=== PATIENT | female | born 1945 | race Caucasian/White ===

== ENCOUNTER 2016-07-29 12:06 | Emergency (ER) | payer OTHER, MEDICARE ==
[~2016-07-29] VITALS: Ht 152.4 cm; Wt 81.6 kg
[~2016-07-29 12:06] MED LIST: AMLO5TAB PO; ASPI325T49 PO; ATEN100T6 PO; CLOP75TA PO; ENAL20TA46 PO; HYDR-4446 PO; ISOS5TAB7 PO; LIP80 PO; LORA-476 PO; METO-460 PO; OMEP40EC1 PO; PHEN100C4 PO
--- NOTE | 2016-07-29 12:11 | NUR ---
Patient transferred to bed 7 via wheelchair by POLLY nicole evaluating patient at bedside.
[2016-07-29 12:12] VITALS: BP 139/75
[2016-07-29] MEDS ORDERED: NACL 0.9% 1,000 ML IV SCH (12:12)
--- NOTE | 2016-07-29 12:12 | NUR ---
Dr. Castano evaluating patient at bedside.
[2016-07-29] MEDS ORDERED: ASPIRIN 81 MG TAB.CHEW PO ONE (12:15)
[2016-07-29] MEDS ORDERED: ONDANSETRON 4 MG/2 ML VIAL IVP ONE (12:15)
--- NOTE | 2016-07-29 12:23 | NUR ---
retail merchandiser technician at bedside.
--- NOTE | 2016-07-29 12:25 | NUR ---
X-Ray at bedside.
--- NOTE | 2016-07-29 12:35 | NUR ---
PATIENT PRESENTS TO ED WITH left sided chest pain radiating to lue with sob x 1 day . PT STATES . DENIES N/V/D; SKIN IS PINK/WARM/DRY; AAOX4 WITH EVEN AND STEADY GAIT; LUNGS CLEAR BL; HR EVEN AND REGULAR; PT DENIES ANY FEVER, COUGH AT THIS TIME; PATIENT STATES PAIN OF 6/10 AT THIS TIME; VSS; PATIENT POSITIONED FOR COMFORT; HOB ELEVATED; BEDRAILS UP X2; BED DOWN. ER MD MADE AWARE OF PT STATUS.
[2016-07-29 12:49] LABS: BASOPHILS # (AUTO) 0.2 K/uL (0.00-0.22); EOSINOPHILS # (AUTO) 0.3 K/uL (0-0.4); EOSINOPHILS % (AUTO) 4.3 % (0.0-4.0); HEMATOCRIT 39.9 % (36-48); HEMOGLOBIN 13.2 g/dL (12.0-16.0); LYMPHOCYTES # (AUTO) 1.9 K/uL (2.5-16.5); MEAN CORPUSCULAR HEMOGLOBIN 31 pg (27-31); MEAN CORPUSCULAR HGB CONC 33 g/dL (33-37); MEAN CORPUSCULAR VOLUME 94 fL (80-94); MONOCYTES # (AUTO) 0.7 K/uL (0.8-1.0); MONOCYTES % (AUTO) 9.5 % (1.7-9.3); NEUTROPHILS # (AUTO) 4.5 K/uL (1.8-7.7); NEUTROPHILS % (AUTO) 59.2 % (42.2-75.2); PLATELET COUNT (AUTO) 251 K/uL (140-450); RED BLOOD CELL COUNT(AUTO) 4.26 MIL/uL (4.20-5.40); RED CELL DISTRIBUTION WIDTH 11.6 % (11.6-13.7); WHITE BLOOD COUNT (AUTO) 7.6 K/uL (4.8-10.8)
[2016-07-29 13:00] LABS: ANION GAP 8.6 (8-16); CALCIUM 8.1 mg/dL (8.5-10.1); CARBON DIOXIDE 29.3 mmol/L (21-32); CHLORIDE 105 mmol/L (98-107); CREATININE 0.8 mg/dL (0.6-1.3); GLUCOSE 155 mg/dL (74-106); POTASSIUM 3.9 mmol/L (3.5-5.1); SODIUM SERUM 139 mmol/L (136-145); UREA NITROGEN, BLOOD 17 mg/dL (7-18)
[2016-07-29 13:06] LABS: ALANINE AMINOTRANSFERASE 27 U/L (12-78); ALBUMIN 3.3 g/dL (3.4-5.0); ALKALINE PHOSPHATASE 75 U/L (46-116); ASPARTATE AMINOTRANSFERASE 20 U/L (15-37); INR 1.1 (0.8-1.2); PARTIAL THROMBOPLASTIN TIME 25.9 secs (22-35.6); TOTAL BILIRUBIN 0.3 mg/dL (0.0-1.0); TOTAL PROTEIN, SERUM 7.4 g/dL (6.4-8.2)
[2016-07-29 13:08] LABS: AMYLASE 48 U/L (25-115); LIPASE 236 U/L (73-393)
--- NOTE | 2016-07-29 13:10 | NUR ---
pt admits chest pain has subsided for now--resting with ou closed, feet crossed--will continue to observe for chest pain or sob
[2016-07-29] MEDS ORDERED: ACETAMINOPHEN EXTRA STRENGTH 500 MG TAB PO ONE (13:40)
--- NOTE | 2016-07-29 13:58 | NUR ---
c/o headache---denies cp , no n/v--
[2016-07-29 14:18] VITALS: BP 122/56
--- NOTE | 2016-07-29 14:18 | NUR ---
Patient discharged with v/s stable. Written and verbal after care instructions given and explained. Patient alert, oriented and verbalized understanding of instructions. Ambulatory with steady gait. All questions addressed prior to discharge. ID band removed. Patient advised to follow up with PMD. Rx of NITRO/TYLENOL W CODEINE given. Patient educated on indication of medication including possible reaction and side effects. Opportunity to ask questions provided and answered.
== END 2016-07-29 14:18 | disposition home or self-care (01) ==
LOC: MED 12:06
DX: R07.89 Other chest pain (principal); I25.2 Old myocardial infarction; E11.9 Type 2 diabetes mellitus without complications; K21.9 Gastro-esophageal reflux disease without esophagitis; I10 Essential (primary) hypertension; Z79.82 Long term (current) use of aspirin; Z95.5 Presence of coronary angioplasty implant and graft
CPT/HCPCS: 36415; 71010; 80053; 82150; 82553; 83690; 83880; 84484; 85025; 85379; 85610; 85730; 93005; 96361; 96374; 99285; J2405; J7030; Q0092

== ENCOUNTER 2016-08-23 22:13 | Emergency (ER) | payer MEDICARE, OTHER ==
[~2016-08-23] VITALS: Ht 152.4 cm; Wt 84.4 kg
[2016-08-23 22:15] VITALS: BP 159/75
--- NOTE | 2016-08-23 22:28 | NUR ---
TO ER BED 4
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
[2016-08-23] MEDS: PANTOPRAZOLE 40 MG INJ VIAL IVP ONE (22:35)
[2016-08-23] MEDS: NACL 0.9% 1,000 ML IV ONE (22:35)
[2016-08-23 22:48] LABS: BASOPHILS # (AUTO) 0.4 K/uL (0.00-0.22); BASOPHILS % (AUTO) 3.9 % (0.0-2.0); EOSINOPHILS # (AUTO) 0.3 K/uL (0-0.4); EOSINOPHILS % (AUTO) 2.5 % (0.0-4.0); HEMATOCRIT 40.3 % (36-48); HEMOGLOBIN 13.3 g/dL (12.0-16.0); LYMPHOCYTES # (AUTO) 3.2 K/uL (2.5-16.5); LYMPHOCYTES % (AUTO) 28.4 % (20.5-51.1); MEAN CORPUSCULAR HEMOGLOBIN 31 pg (27-31); MEAN CORPUSCULAR HGB CONC 33 g/dL (33-37); MEAN CORPUSCULAR VOLUME 94 fL (80-94); MONOCYTES # (AUTO) 0.6 K/uL (0.8-1.0); MONOCYTES % (AUTO) 5.5 % (1.7-9.3); NEUTROPHILS # (AUTO) 6.6 K/uL (1.8-7.7); NEUTROPHILS % (AUTO) 59.7 % (42.2-75.2); PLATELET COUNT (AUTO) 321 K/uL (140-450); RED BLOOD CELL COUNT(AUTO) 4.31 MIL/uL (4.20-5.40); RED CELL DISTRIBUTION WIDTH 11.4 % (11.6-13.7); WHITE BLOOD COUNT (AUTO) 11.1 K/uL (4.8-10.8)
[2016-08-23] MEDS: methylPREDNISolone SS 125 MG in WATER STERILE 2 ML IV ONE (22:55)
[2016-08-23 23:24] LABS: ANION GAP 11.3 (8-16); CALCIUM 9.1 mg/dL (8.5-10.1); CARBON DIOXIDE 29.8 mmol/L (21-32); CHLORIDE 104 mmol/L (98-107); CREATININE 1.3 mg/dL (0.6-1.3); GLUCOSE 125 mg/dL (74-106); POTASSIUM 4.1 mmol/L (3.5-5.1); SODIUM SERUM 141 mmol/L (136-145); UREA NITROGEN, BLOOD 19 mg/dL (7-18)
[2016-08-23 23:25] LABS: ALANINE AMINOTRANSFERASE 23 U/L (12-78); ALBUMIN 3.5 g/dL (3.4-5.0); ALKALINE PHOSPHATASE 74 U/L (46-116); ASPARTATE AMINOTRANSFERASE 18 U/L (15-37); TOTAL BILIRUBIN 0.1 mg/dL (0.0-1.0); TOTAL PROTEIN, SERUM 7.8 g/dL (6.4-8.2)
[2016-08-23 23:31] LABS: PROTHROMBIN TIME 9.8 secs (10.8-13.4)
[2016-08-23 23:32] LABS: PARTIAL THROMBOPLASTIN TIME 29.9 secs (22-35.6)
[2016-08-23] MEDS: LEVOFLOXACIN 500 MG/D5W PREMIX 100 ML IV ONE (23:47)
[2016-08-23] MEDS: ALBUTEROL SULFATE/IPRATROPIU 3 ML SOL IH ONE (23:53)
[2016-08-24] MEDS: AZITHROMYCIN 250 MG TAB PO ONE (00:17)
--- NOTE | 2016-08-24 00:32 | NUR ---
IV removed, catheter intact and site benign. Applied folded 4x4 gauze and tape to stop bleeding.
[2016-08-24 00:33] VITALS: BP 144/76
--- NOTE | 2016-08-24 00:33 | NUR ---
Patient discharged with v/s stable. Written and verbal after care instructions given and explained. Patient alert, oriented and verbalized understanding of instructions. Ambulatory with steady gait. All questions addressed prior to discharge. ID band removed. Patient advised to follow up with PMD. Rx of ATROVENT INHALER, ZITHROMAX 250MG, ALBUTEROL INHALER given. Patient educated on indication of medication including possible reaction and side effects. Opportunity to ask questions provided and answered.
== END 2016-08-24 00:33 | disposition home or self-care (01) ==
LOC: MED 22:13
DX: J18.9 Pneumonia, unspecified organism (principal); J45.909 Unspecified asthma, uncomplicated; I25.2 Old myocardial infarction; E11.9 Type 2 diabetes mellitus without complications; K21.9 Gastro-esophageal reflux disease without esophagitis; I10 Essential (primary) hypertension; Z88.0 Allergy status to penicillin
CPT/HCPCS: 36415; 71010; 80053; 84484; 85025; 85610; 85730; 93005; 94640; 96361; 96374; 96375; 99285; C9113; J2930; J7030; J7620; J1956

== ENCOUNTER 2016-09-08 12:13 | Outpatient (CLI) | payer MEDICARE, OTHER | END 2016-09-08 21:00 | disposition home or self-care (01) | LOC: MRD 12:13 | PROVIDERS: ATTEND Family Medicine | PROC: B54NZZZ Ultrasonography of Left Upper Extremity Veins (ICD-10-PCS; principal; 2016-09-08) | DX: Z13.89 Encounter for screening for other disorder (principal); I82.622 Acute embolism and thrombosis of deep veins of left upper extremity | CPT/HCPCS: 93971; Q0092 ==

== ENCOUNTER 2016-10-31 17:40 | Emergency (ER) | payer MEDICARE, OTHER ==
[~2016-10-31] VITALS: Ht 154.9 cm; Wt 86.6 kg
[2016-10-31 18:28] VITALS: BP 140/83
--- NOTE | 2016-10-31 19:05 | NUR ---
PT TAKEN TO BED 5
--- NOTE | 2016-10-31 19:14 | NUR ---
PT TAKEN TO XRAY
--- NOTE | 2016-10-31 19:34 | NUR ---
PT RETURN FROM XRAY
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
--- NOTE | 2016-10-31 20:56 | NUR ---
PT RESTING IN BED, AWATING FOR MD EVALUATION. NO S/S OF DISTRESS NOTED SO FAR. WILL CONT TO MONITOR.
[2016-10-31 21:56] VITALS: BP 135/82
--- NOTE | 2016-10-31 21:56 | NUR ---
Patient discharged with v/s stable. Written and verbal after care instructions given and explained. Patient alert, oriented and verbalized understanding of instructions. Ambulatory with steady gait. All questions addressed prior to discharge. ID band removed. Patient advised to follow up with PMD TOMORROW OR RETURN TO ER IF CONDITION WORSENS. Rx of MOTRIN given. Patient educated on indication of medication including possible reaction and side effects. Opportunity to ask questions provided and answered.
== END 2016-10-31 21:56 | disposition home or self-care (01) ==
LOC: MED 17:40
DX: M25.511 Pain in right shoulder (principal); M54.5 Low back pain; J45.909 Unspecified asthma, uncomplicated; I25.2 Old myocardial infarction; E11.9 Type 2 diabetes mellitus without complications; K21.9 Gastro-esophageal reflux disease without esophagitis; I10 Essential (primary) hypertension; Z79.82 Long term (current) use of aspirin; Z79.899 Other long term (current) drug therapy; Z88.0 Allergy status to penicillin; V49.59XA Passenger injured in collision with other motor vehicles in traffic accident, initial encounter; Y93.89 Activity, other specified; Y92.89 Other specified places as the place of occurrence of the external cause; Y99.8 Other external cause status
CPT/HCPCS: 72110; 73030; 81002; 99284

== ENCOUNTER 2017-04-25 03:51 | Emergency (ER) | payer MEDICARE, OTHER ==
[~2017-04-25] VITALS: Ht 152.4 cm; Wt 83.9 kg
[~2017-04-25 03:51] MED LIST changes: +ACET-8386 PO; -HYDR-4446 PO
[2017-04-25 03:54] VITALS: BP 103/68
--- NOTE | 2017-04-25 04:03 | NUR ---
PT TO BED
--- NOTE | 2017-04-25 04:05 | NUR ---
PT HAD BOTOX BLADDER LIFT ON 04/24/17, UNABLE TO VOID AT THIS TIME PT DENIES N/V/D; SKIN IS PINK/WARM/DRY; AAOX4 WITH EVEN AND STEADY GAIT; LUNGS CLEAR BL; HR EVEN AND REGULAR; PT DENIES ANY FEVER, CP, SOB, OR COUGH AT THIS TIME; PATIENT STATES PAIN OF 10/10 AT THIS TIME; VSS; PATIENT POSITIONED FOR COMFORT; HOB ELEVATED; BEDRAILS UP X2; BED DOWN. ER MD MADE AWARE OF PT STATUS.
--- NOTE | 2017-04-25 04:15 | NUR ---
# 16 FR [place] catheter with 10ml utilizing sterile technique. Immediate return of 200 ml RED urine noted. Bedside drainage bag placed below level of bladder. Urine sample collected. Pt tolerated procedure WELL.
--- NOTE | 2017-04-25 04:34 | NUR ---
Patient discharged with v/s stable. Written and verbal after care instructions given and explained. Patient alert, oriented and verbalized understanding of instructions. Ambulatory with steady gait. All questions addressed prior to discharge. ID band removed. Patient advised to follow up with PMD. Rx of NORCO AND CIPRO given. Patient educated on indication of medication including possible reaction and side effects. Opportunity to ask questions provided and answered. WALLER LEFT IN PLACE PER MD. PT WILL FOLLOW-UP WITH PMD
[2017-04-25 04:35] VITALS: BP 103/68
== END 2017-04-25 04:34 | disposition home or self-care (01) ==
LOC: MED 03:51
DX: N39.0 Urinary tract infection, site not specified (principal); Z88.0 Allergy status to penicillin; J45.909 Unspecified asthma, uncomplicated; K21.9 Gastro-esophageal reflux disease without esophagitis; I25.2 Old myocardial infarction; I10 Essential (primary) hypertension; E11.9 Type 2 diabetes mellitus without complications; Z98.61 Coronary angioplasty status
CPT/HCPCS: 81002; 99283

== ENCOUNTER 2017-04-25 17:23 | Emergency (ER) | payer MEDICARE, OTHER ==
[~2017-04-25] VITALS: Ht 152.4 cm; Wt 83.5 kg
[2017-04-25 17:40] VITALS: BP 149/106
--- NOTE | 2017-04-25 18:11 | NUR ---
Patient to OF2. RN evaluating patient.
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
--- NOTE | 2017-04-25 19:03 | NUR ---
Patient discharged with v/s stable. Written and verbal after care instructions given and explained. Patient verbalized understanding. Ambulatory with steady gait. All questions addressed prior to discharge. Advised to follow up with PMD. VSS
[2017-04-25 19:04] VITALS: BP 138/84
== END 2017-04-25 19:03 | disposition home or self-care (01) ==
LOC: MED 17:23
DX: T83.098A Other mechanical complication of other urinary catheter, initial encounter (principal); R31.9 Hematuria, unspecified; J45.909 Unspecified asthma, uncomplicated; I25.2 Old myocardial infarction; E11.9 Type 2 diabetes mellitus without complications; K21.9 Gastro-esophageal reflux disease without esophagitis; I10 Essential (primary) hypertension; Z79.899 Other long term (current) drug therapy; Z79.82 Long term (current) use of aspirin; Z88.0 Allergy status to penicillin; X58.XXXA Exposure to other specified factors, initial encounter; Y93.89 Activity, other specified; Y92.89 Other specified places as the place of occurrence of the external cause; Y99.8 Other external cause status
CPT/HCPCS: 99284

== ENCOUNTER 2017-08-04 10:33 | Inpatient (IN) | payer OTHER, MEDICARE ==
[~2017-08-04] VITALS: Ht 152.4 cm; Wt 83.5 kg
[2017-08-04 10:36] VITALS: BP 141/94
--- NOTE | 2017-08-04 10:42 | NUR ---
PT AMBULATES TO BED 11
[2017-08-04] MEDS ORDERED: NACL 0.9% 1,000 ML IV ONE (10:45)
--- NOTE | 2017-08-04 10:45 | NUR ---
CHEST X- RAY DONE
[2017-08-04] MEDS ORDERED: ASPIRIN 81 MG TAB.CHEW PO ONE (10:55)
[2017-08-04] MEDS ORDERED: PROCHLORPERAZINE 10 MG/2 ML VIAL IVP ONE (10:55)
[2017-08-04] MEDS ORDERED: PANTOPRAZOLE 40 MG INJ VIAL IVP ONE (10:55)
[2017-08-04] MEDS ORDERED: diphenhydrAMINE 50 MG/ML VIAL IVP ONE (10:55)
--- NOTE | 2017-08-04 11:12 | NUR ---
PT TAKEN TO CT
--- NOTE | 2017-08-04 11:14 | NUR ---
PT BIB DAUGHTER FOR HEADCHAE AND ZELDA PAIN. PT STATES H/A IS 10/10 BUT SHE TOOK NITRO THIS MORNIGN ABOUT 1/2 HOUR BEFORE COMMING AND HER CHEST PAIN IS NOW 4/10. PT ALSO HAS HISTORY OF GASTRITIS, SEIZURES,[place] CHOLESTROL AND [place] BACK IN 2013. PT SKIN IS W/D/I. PT C/O OF ROSA MARIA BUT NO N/V . MD AT BEDSIDE EVALUATING PT.
[2017-08-04 11:15] LABS: BASOPHILS % (AUTO) 0.6 % (0.0-2.0); EOSINOPHILS # (AUTO) 0.3 K/uL (0-0.4); EOSINOPHILS % (AUTO) 3.6 % (0.0-4.0); LYMPHOCYTES # (AUTO) 2.4 K/uL (2.5-16.5); LYMPHOCYTES % (AUTO) 33.7 % (20.5-51.1); MEAN CORPUSCULAR HEMOGLOBIN 31 pg (27-31); MEAN CORPUSCULAR HGB CONC 33 g/dL (33-37); MEAN CORPUSCULAR VOLUME 93.9 fL (80-94); MONOCYTES # (AUTO) 0.6 K/uL (0.8-1.0); MONOCYTES % (AUTO) 8.2 % (1.7-9.3); NEUTROPHILS # (AUTO) 3.9 K/uL (1.8-7.7); NEUTROPHILS % (AUTO) 53.9 % (42.2-75.2); PLATELET COUNT (AUTO) 226 K/uL (140-450); RED BLOOD CELL COUNT(AUTO) 4.47 MIL/uL (4.20-5.40); RED CELL DISTRIBUTION WIDTH 12.5 % (11.6-13.7); WHITE BLOOD COUNT (AUTO) 7.2 K/uL (4.8-10.8)
[2017-08-04 11:21] LABS: ANION GAP 14.1 (8-16); CARBON DIOXIDE 25.5 mmol/L (21-32); CHLORIDE 104 mmol/L (98-107); CREATININE 1.2 mg/dL (0.6-1.3); GLUCOSE 159 mg/dL (74-106); POTASSIUM 3.6 mmol/L (3.5-5.1); SODIUM SERUM 140 mmol/L (136-145); UREA NITROGEN, BLOOD 19 mg/dL (7-18)
[2017-08-04 11:24] LABS: PROTHROMBIN TIME 10.4 secs (10.8-13.4)
[2017-08-04 11:28] LABS: ASPARTATE AMINOTRANSFERASE 21 U/L (15-37); TOTAL BILIRUBIN 0.2 mg/dL (0.0-1.0)
--- NOTE | 2017-08-04 12:49 | NUR ---
PT IN BED LYING DOWN STATES THAT PAIN HAS DECREASED IN HER HEAD TO A 4/10 AND HER CHEST PAIN IS 3/10. NACL CONTINUES TO INFUSE AND DAUGHTER AT BEDSIDE. DAUGHTER SAID SHE WAS LEAVING BUT WILL RETURN SOON.
[2017-08-04 13:15] VITALS: BP 181/70
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
--- NOTE | 2017-08-04 14:00 | NUR ---
DR. MAHAJAN WAS MADE AWARE OF BP 180/70, AND COMPLAINED OF HEADACHE. WILL MEDICATE PER ORDER
[2017-08-04] MEDS ORDERED: hydrALAZINE 20 MG/ML VIAL IVP PRN (14:10)
[2017-08-04] MEDS: ACETAMINOPHEN 325 MG TAB PO PRN (14:36)
[2017-08-04] MEDS ORDERED: LORazepam 1 MG TAB PO PRN (15:05)
[2017-08-04] MEDS ORDERED: MORPHINE SULFATE 4 MG/ML SYR IVP PRN (15:05)
[2017-08-04] MEDS ORDERED: ONDANSETRON 4 MG/2 ML VIAL IVP PRN (15:05)
[2017-08-04] MEDS ORDERED: ACETAMINOPHEN 325 MG TAB PO PRN (15:05)
--- NOTE | 2017-08-04 15:30 | NUR ---
PATIENT IS SLEEPING COMFORTABLY. RESPIRATION EVEN, UNLABOR ON ROOM AIR. NO DISTRESS NOTED AT THIS TIME. VS IS STABLE. CALL LIGHT WITHIN REACH
[2017-08-04 16:00] VITALS: BP 137/76
[2017-08-04] MEDS: PHENYTOIN 100 MG CAPER PO SCH (17:08)
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
--- NOTE | 2017-08-04 19:14 | NUR ---
ENDORSEMENT GIVEN TO PRINTED PRODUCTS ASSEMBLER NURSE. PATIENT IS STABLE AT THIS TIME.
--- NOTE | 2017-08-04 19:15 | NUR ---
PATIENT REPORT RECEIVED FROM MORNING NURSE AT BEDSIDE. PATIENT IS AWAKE, ALERT AND ORIENTED. NO SIGNS AND SYMPTOMS OF DISTRESS NOTED. PATIENT IS ON ROOM AIR. IV SITE NOTED ON LEFT AC, SALINE LOCKED. PLAN OF CARE DISCUSSED WITH PATIENT. PATIENT VERBALIZED UNDERSTANDING. BED IN LOWEST POSITION, SIDE RAILS UP AND CALL LIGHT WITHIN REACH. WILL CONTINUE TO MONITOR.
[2017-08-04 20:00] VITALS: BP 166/74
[2017-08-04] MEDS: ISOSORBIDE DINITRATE 10 MG TAB PO SCH (20:12)
--- NOTE | 2017-08-04 20:30 | NUR ---
MEDICATION EDUCATION GIVEN. PATIENT VERBALIZED UNDERSTANDING. MEDS ADMINISTERED ORDERED. PATIENT TOLERATED WELL. WILL CONTINUE TO MONITOR.
[2017-08-04 20:32] LABS: CREATINE KINASE MB 0.8 ng/mL (0-3.6)
[2017-08-04] MEDS ORDERED: ATORVASTATIN 80 MG TAB PO SCH (21:00)
--- NOTE | 2017-08-04 23:00 | NUR ---
CHECKED ON PATIENT. PATIENT IS ASLEEP. NO SIGNS AND SYMPTOMS OF DISTRESS NOTED. BREATHING EVEN AND UNLABORED. BED IN LOWEST POSITION ,SIDE RAILS UP AND CALL LIGHT WITHIN REACH. WILL CONTINUE TO MONITOR.
[2017-08-05] VITALS: BP 122/58
--- NOTE | 2017-08-05 04:00 | NUR ---
CHECKED ON PATIENT. PATIENT IS ASLEEP. NO SIGNS AND SYMPTOMS OF DISTRESS NOTED. BREATHING EVEN AND UNLABORED. WILL CONTINUE TO MONITOR.
[2017-08-05 05:00] VITALS: BP 132/78
[2017-08-05] MEDS: ACETAMINOPHEN 325 MG TAB PO PRN (05:54)
[2017-08-05] MEDS ORDERED: PANTOPRAZOLE 40 MG TABEC PO SCH (06:30)
--- NOTE | 2017-08-05 07:19 | NUR ---
PATIENT REPORT GIVEN TO MORNING NURSE FOR CONTINUITY OF CARE. PATIENT IS IN STABLE CONDITION
--- NOTE | 2017-08-05 07:45 | NUR ---
ENDORSEMENT RECEIVED FROM MULTI SKILLED OPERATOR NURSE. PATIENT IS AWAKE, ALERT. RESPIRATIONE EVEN, UNLABOR ON ROOM AIR. SKIN DRY AND WARM. IV PATENT AND INTACT. DENIED CHEST PAIN, N/V , OR SOB AT THIS TIME. VS IS STABLE. PLAN OF CARE WAS DISCUSSED WITH PATIENT. BED AT LOW POSITION, SIDE RAILS UP. CALL LIGHT WITHIN REACH.
[2017-08-05 08:00] VITALS: BP 172/74
[2017-08-05 08:23] LABS: EOSINOPHILS % (AUTO) 3.3 % (0.0-4.0); RED CELL DISTRIBUTION WIDTH 11.7 % (11.6-13.7)
[2017-08-05] MEDS: PHENYTOIN 100 MG CAPER PO SCH ×2 (08:35→12:33)
[2017-08-05] MEDS: ISOSORBIDE DINITRATE 10 MG TAB PO SCH (08:37)
[2017-08-05 08:53] LABS: CREATINE KINASE MB 0.7 ng/mL (0-3.6)
[2017-08-05 08:54] LABS: BASOPHILS # (AUTO) 0.2 K/uL (0.00-0.22); BASOPHILS % (AUTO) 1.9 % (0.0-2.0); EOSINOPHILS # (AUTO) 0.3 K/uL (0-0.4); HEMATOCRIT 39.1 % (36-48); HEMOGLOBIN 13.3 g/dL (12.0-16.0); LYMPHOCYTES # (AUTO) 2.1 K/uL (2.5-16.5); LYMPHOCYTES % (AUTO) 24.3 % (20.5-51.1); MEAN CORPUSCULAR HEMOGLOBIN 32 pg (27-31); MEAN CORPUSCULAR HGB CONC 34 g/dL (33-37); MEAN CORPUSCULAR VOLUME 93.6 fL (80-94); NEUTROPHILS # (AUTO) 5.2 K/uL (1.8-7.7); NEUTROPHILS % (AUTO) 58.6 % (42.2-75.2); RED BLOOD CELL COUNT(AUTO) 4.18 MIL/uL (4.20-5.40); WHITE BLOOD COUNT (AUTO) 8.8 K/uL (4.8-10.8)
[2017-08-05 08:55] LABS: ALBUMIN 3.6 g/dL (3.4-5.0); ANION GAP 11.1 (8-16); ASPARTATE AMINOTRANSFERASE 36 U/L (15-37); CARBON DIOXIDE 26.4 mmol/L (21-32); CHLORIDE 106 mmol/L (98-107); CREATININE 1.1 mg/dL (0.6-1.3); GLUCOSE 152 mg/dL (74-106); POTASSIUM 3.5 mmol/L (3.5-5.1); SODIUM SERUM 140 mmol/L (136-145); TOTAL BILIRUBIN 0.3 mg/dL (0.0-1.0); UREA NITROGEN, BLOOD 16 mg/dL (7-18)
[2017-08-05 08:55] LABS: MONOCYTES % (AUTO) 11.9 % (1.7-9.3); PLATELET COUNT (AUTO) 204 K/uL (140-450)
[2017-08-05] MEDS ORDERED: CLOPIDOGREL 75 MG TAB PO SCH (09:00)
[2017-08-05] MEDS ORDERED: ATENOLOL 50 MG TAB PO SCH (09:00)
[2017-08-05] MEDS ORDERED: ENALAPRIL 10 MG TAB PO SCH (09:00)
[2017-08-05] MEDS ORDERED: ASPIRIN 325 MG TAB PO SCH (09:00)
[2017-08-05] MEDS ORDERED: amLODIPine 5 MG TAB PO SCH (09:00)
[2017-08-05] MEDS ORDERED: NON-FORMULARY ITEM (Omeprazole* (Prilosec*) 20 MG) PO SCH (09:00)
[2017-08-05] MEDS ORDERED: ENOXAPARIN 30 MG/0.3 ML SYR SUBQ SCH (09:00)
--- NOTE | 2017-08-05 11:12 | NUR ---
PATIENT AWAKE, ALERT, WATCHING TV. RESPIRATION EVEN, UNLABOR ON ROOM AIR. NO DISTRESS NOTED AT THIS TIME. CALL LIGHT WITHIN REACH
[2017-08-05 12:00] VITALS: BP 145/62
--- NOTE | 2017-08-05 12:09 | NUR ---
PATIENT HAS BEEN SCREENED AND CATEGORIZED MODERATE NUTRITION RISK. PATIENT WILL BE SEEN WITHIN 3-5 DAYS OF ADMISSION. 08/07/17 - 08/09/17 ROXANNA TAVAREZ MBA, RD
--- NOTE | 2017-08-05 13:30 | NUR ---
PATIENT REQUESTED TO LEAVE AMA, STATED SHE CANNOT WAIT FOR THE DOCTOR ANYMORE. RISKS OF AMA WAS EXPLAINED TO THE PATIENT. PATIENT VERBALIZED UNDERSTANDING. PATIENT SIGNED AMA FORM. DR. MAHAJAN WAS MADE AWARE PER CHARGE NURSE ROBERTO CARLOS. IV WAS REMOVED, CATHETER INTACT, NO ACTIVE BLEEDING SEEN. ID BAND AND STOKER INSTALLATION MECHANIC WAS REMOVED. ALL BELONGINGS WERE TAKEN WITH PATIENT. PATIENT IS STABLE AT THIS TIME
--- NOTE | 2017-08-06 13:27 | NUR ---
CM NOTE RETRO REVIEW FAXED TO [facility] / FAX# [phone]
== END 2017-08-05 13:30 | disposition left against medical advice (07) | DRG 198 ==
LOC: MED 10:33 → MTU 12:45
PROVIDERS: ADMIT Hospitalist; ATTEND Hospitalist
DX: R07.89 Other chest pain (principal); I25.2 Old myocardial infarction; I11.9 Hypertensive heart disease without heart failure; E11.9 Type 2 diabetes mellitus without complications; G40.909 Epilepsy, unspecified, not intractable, without status epilepticus; I25.10 Atherosclerotic heart disease of native coronary artery without angina pectoris; E66.9 Obesity, unspecified; J45.909 Unspecified asthma, uncomplicated; K21.9 Gastro-esophageal reflux disease without esophagitis; E78.5 Hyperlipidemia, unspecified; F41.9 Anxiety disorder, unspecified; J06.9 Acute upper respiratory infection, unspecified; Z53.21 Procedure and treatment not carried out due to patient leaving prior to being seen by health care provider; Z68.35 Body mass index [BMI] 35.0-35.9, adult; Z88.0 Allergy status to penicillin; Z95.5 Presence of coronary angioplasty implant and graft; Z79.82 Long term (current) use of aspirin
CPT/HCPCS: 36415; 70450; 71045; 80053; 82550; 82553; 84484; 85025; 85610; 85730; 87081; 87804; 93005; 96374; 96375; 99285; C9113; J0360; J0780; J1200; J1644; J2270; J7030

== ENCOUNTER 2017-11-19 02:30 | Emergency (ER) | payer MEDICARE, OTHER ==
[~2017-11-19] VITALS: Ht 152.4 cm; Wt 84.4 kg
[2017-11-19 02:39] VITALS: BP 165/85
--- NOTE | 2017-11-19 02:41 | NUR ---
TO BED # 9 AMBULATORY, REPORT GIVEN TO NOAH MATIAS
--- NOTE | 2017-11-19 02:45 | NUR ---
72/F CAME IN ED, C/O GENERALIZED WEAKNESS, X2 DAYS. PT REPORTS "HOT FLASHES." PT REPORTS 3/10 EPIGASTRIC PAIN, NONRADIATING. PT DENIES FEVER, N/V/D, DYSURIA. LUNG SOUNDS CLEAR BL. BS ACTIVE X4, ABD SOFT ROUND TENDER ON EPIGASTRIC AREA. AOX4, AMBULATORY, RR EVEN AND UNLABORED. HX SZ, HTN, HLD, KIDNEY SURGERY, HERNIA REPAIR, R KNEE REPLACEMENT, GASTRITIS. RX DILANTIN AND HTN MEDS. ER MD MADE AWARE.
[2017-11-19] MEDS ORDERED: NACL 0.9% 1,000 ML IV ONE (02:55)
[2017-11-19 03:07] LABS: HEMATOCRIT 39.3 % (36-48); HEMOGLOBIN 13.3 g/dL (12.0-16.0); MEAN CORPUSCULAR HEMOGLOBIN 32 pg (27-31); MEAN CORPUSCULAR HGB CONC 34 g/dL (33-37); MEAN CORPUSCULAR VOLUME 95.4 fL (80-94); PLATELET COUNT (AUTO) 231 K/uL (140-450); RED BLOOD CELL COUNT(AUTO) 4.12 MIL/uL (4.20-5.40); RED CELL DISTRIBUTION WIDTH 11.7 % (11.6-13.7); WHITE BLOOD COUNT (AUTO) 11.3 K/uL (4.8-10.8)
[2017-11-19 03:08] LABS: BASOPHILS % (AUTO) 1.2 % (0.0-2.0); EOSINOPHILS % (AUTO) 1.6 % (0.0-4.0); LYMPHOCYTES % (AUTO) 17.9 % (20.5-51.1); MONOCYTES % (AUTO) 10.8 % (1.7-9.3); NEUTROPHILS % (AUTO) 68.5 % (42.2-75.2)
[2017-11-19 03:09] LABS: BASOPHILS # (AUTO) 0.1 K/uL (0.00-0.22); EOSINOPHILS # (AUTO) 0.2 K/uL (0-0.4); MONOCYTES # (AUTO) 1.2 K/uL (0.8-1.0); NEUTROPHILS # (AUTO) 7.8 K/uL (1.8-7.7)
[2017-11-19 03:25] LABS: APPEARANCE,URINE CLEAR (CLEAR); BILIRUBIN,URINE NEGATIVE (NEGATIVE); BLOOD, URINE 1+ (NEGATIVE); COLOR,URINE YELLOW (YELLOW); LEUKOCYTE ESTERASE ,URINE NEGATIVE (NEGATIVE); NITRITE, URINE NEGATIVE (NEGATIVE); UGLUCOSE NEGATIVE (NEGATIVE)
[2017-11-19 03:26] LABS: CHLORIDE 102 mmol/L (98-107); POTASSIUM 3.8 mmol/L (3.5-5.1); SODIUM SERUM 137 mmol/L (136-145)
[2017-11-19 03:27] LABS: ALBUMIN 3.7 g/dL (3.4-5.0); ANION GAP 15.1 (8-16); ASPARTATE AMINOTRANSFERASE 15 U/L (15-37); CARBON DIOXIDE 23.7 mmol/L (21-32); CREATININE 1.3 mg/dL (0.6-1.3); GLUCOSE 107 mg/dL (74-106); TOTAL BILIRUBIN 0.2 mg/dL (0.0-1.0)
[2017-11-19 03:28] LABS: LIPASE 353 U/L (73-393)
--- NOTE | 2017-11-19 03:30 | NUR ---
X-Ray at bedside.
[2017-11-19 03:33] LABS: CREATINE KINASE MB 0.8 ng/mL (0-3.6)
[2017-11-19 03:40] LABS: PHENYTOIN (DILANTIN) 5.3 ug/ml (10.0-20.0); UREA NITROGEN, BLOOD 35 mg/dL (7-18)
[2017-11-19 03:55] LABS: RBC,URINE 0-5 (RARE) /HPF (0-5); WBC,URINE 0-5 (RARE) /HPF (0-5)
--- NOTE | 2017-11-19 03:59 | NUR ---
Dr. Avelar evaluating patient at bedside.
[2017-11-19] MEDS ORDERED: PHENYTOIN 1,000 MG in NACL 0.9% 100 ML IV ONE (04:00)
[2017-11-19] MEDS ORDERED: PHENYTOIN 250 MG/5 ML VIAL IV ONE (04:07)
--- NOTE | 2017-11-19 04:45 | NUR ---
PT RESTING IN BED, RR EVEN AND UNLABORED. ALL NEEDS MET.
[2017-11-19 05:52] VITALS: BP 121/61
--- NOTE | 2017-11-19 05:53 | NUR ---
Patient discharged with v/s stable. Written and verbal after care instructions given and explained. Patient verbalized understanding. Ambulatory with steady gait. All questions addressed prior to discharge. Advised to follow up with PMD.
== END 2017-11-19 05:53 | disposition home or self-care (01) ==
LOC: MED 02:30
DX: R53.1 Weakness (principal); R53.83 Other fatigue; J45.909 Unspecified asthma, uncomplicated; I25.2 Old myocardial infarction; I10 Essential (primary) hypertension; K21.9 Gastro-esophageal reflux disease without esophagitis; Z51.81 Encounter for therapeutic drug level monitoring; Z88.0 Allergy status to penicillin; Z79.899 Other long term (current) drug therapy
CPT/HCPCS: 36415; 71045; 80053; 80185; 81001; 82550; 82553; 83690; 84484; 85025; 93005; 96365; 99285; J1165; J7030; Q0092

== ENCOUNTER 2020-12-13 09:58 | Emergency (ER) | payer MEDICARE, OTHER ==
[~2020-12-13] VITALS: Ht 162.6 cm; Wt 80.7 kg
[~2020-12-13 09:58] MED LIST changes: -ASPI325T49 PO; -OMEP40EC1 PO; +OMEP40EC24 PO; +[UNRECOGNIZED DRUG - CODE] PO
[2020-12-13 10:09] VITALS: BP 155/101
[2020-12-13] MEDS ORDERED: DEXAMETHASONE 10 MG/ML VIAL IM ONE (11:55)
[2020-12-13] MEDS ORDERED: KETOROLAC 30 MG/ML VIAL IM ONE (11:55)
[2020-12-13] MEDS ORDERED: MELO-176 PO (12:32)
[2020-12-13] MEDS ORDERED: LID5T TP (12:33)
[2020-12-13 12:57] VITALS: BP 148/94
--- NOTE | 2020-12-13 12:58 | NUR ---
PT SEEN AND DISCHARGED BY MD. NO DISTRESS. AMBULATORY FROM FACILITY.
== END 2020-12-13 12:57 | disposition home or self-care (01) ==
LOC: MED 09:58
DX: G89.29 Other chronic pain (principal); M54.5 Low back pain; K21.9 Gastro-esophageal reflux disease without esophagitis; I10 Essential (primary) hypertension; Z88.0 Allergy status to penicillin; Z79.899 Other long term (current) drug therapy; Z79.82 Long term (current) use of aspirin
CPT/HCPCS: 96372; 99284; J1100; J1885

== ENCOUNTER 2023-08-12 00:40 | Observation (INO) | payer MEDICARE, OTHER ==
[~2023-08-12] VITALS: Ht 152.4 cm; Wt 88.5 kg
[~2023-08-12 00:40] MED LIST changes: -ACET-8386 PO; +ACET-8905 PO; +LID5T TP; +MELO-176 PO
[2023-08-12 00:48] VITALS: BP_SYST 100; BP_SYST 83; BP_DIAS 35; BP_DIAS 70; PULSE 56; RESP 20; TEMP 98; O2SAT 97
[2023-08-12] MEDS: NACL 0.9% 1,000 ML IV SCH ×2 (01:33→05:48)
[2023-08-12 01:56] LABS: BASOPHILS # (AUTO) 0.1 K/uL (0.00-0.22); BASOPHILS % (AUTO) 0.7 % (0.0-2.0); EOSINOPHILS # (AUTO) 0.3 K/uL (0-0.4); HEMATOCRIT 36.7 % (36-48); HEMOGLOBIN 12.2 g/dL (12.0-16.0); LYMPHOCYTES # (AUTO) 2.5 K/uL (2.5-16.5); LYMPHOCYTES % (AUTO) 23.7 % (20.5-51.1); MEAN CORPUSCULAR HEMOGLOBIN 32 pg (27-31); MEAN CORPUSCULAR HGB CONC 33 g/dL (33-37); MEAN CORPUSCULAR VOLUME 95.3 fL (80-94); MONOCYTES # (AUTO) 1.2 K/uL (0.8-1.0); MONOCYTES % (AUTO) 11.8 % (1.7-9.3); NEUTROPHILS # (AUTO) 6.4 K/uL (1.8-7.7); NEUTROPHILS % (AUTO) 60.8 % (42.2-75.2); PLATELET COUNT (AUTO) 221 K/uL (140-450); RED BLOOD CELL COUNT(AUTO) 3.85 MIL/uL (4.20-5.40); RED CELL DISTRIBUTION WIDTH 12.8 % (11.6-13.7); WHITE BLOOD COUNT (AUTO) 10.5 K/uL (4.8-10.8)
[2023-08-12] MEDS: LEVOFLOXACIN 500 MG/D5W PREMIX 100 ML IV ONE (01:58)
[2023-08-12 02:13] LABS: INR 0.97 (0.8-1.2); PARTIAL THROMBOPLASTIN TIME 25.7 secs (22-35.6); PROTHROMBIN TIME 10.2 secs (10.8-13.4)
[2023-08-12 02:21] LABS: CALCIUM 8.1 mg/dL (8.5-10.1); CARBON DIOXIDE 24.9 mmol/L (21-32); CHLORIDE 104 mmol/L (98-107); CREATININE 1.2 mg/dL (0.6-1.3); GLUCOSE 145 mg/dL (74-106); POTASSIUM 3.9 mmol/L (3.5-5.1); SODIUM SERUM 138 mmol/L (136-145); UREA NITROGEN, BLOOD 31 mg/dL (7-18)
[2023-08-12 02:27] LABS: ALANINE AMINOTRANSFERASE 18 U/L (12-78); ALBUMIN 2.9 g/dL (3.4-5.0); ALKALINE PHOSPHATASE 68 U/L (50-136); ASPARTATE AMINOTRANSFERASE 12 U/L (15-37); TOTAL BILIRUBIN 0.2 mg/dL (0.0-1.0); TOTAL PROTEIN, SERUM 6.3 g/dL (6.4-8.2)
[2023-08-12 02:34] LABS: LACTIC ACID 2.2 mmol/L (0.4-2.0)
[2023-08-12] MEDS ORDERED: CALCIUM CARB 600 MG TAB PO SCH (02:35)
[2023-08-12 03:13] LABS: APPEARANCE,URINE CLEAR (CLEAR); BILIRUBIN,URINE NEGATIVE (NEGATIVE); BLOOD, URINE NEGATIVE (NEGATIVE); COLOR,URINE YELLOW (YELLOW); LEUKOCYTE ESTERASE ,URINE NEGATIVE (NEGATIVE); NITRITE, URINE NEGATIVE (NEGATIVE); PROTEIN,URINE NEGATIVE (NEGATIVE); UGLUCOSE NEGATIVE (NEGATIVE); UROBILINOGEN,URINE 0.2 EU/dL (0.2 - 1)
[2023-08-12] MEDS ORDERED: MORPHINE SULFATE 4 MG/ML SYR IVP PRN (05:30)
[2023-08-12] MEDS ORDERED: MAGNESIUM OXIDE 400 MG TAB PO PRN (05:30)
[2023-08-12] MEDS ORDERED: HYDROcodone/APAP 5/325 MG 1 TAB TAB PO PRN (05:30)
[2023-08-12] MEDS ORDERED: POTASSIUM CHLORIDE 10 MEQ TABER PO PRN (05:30)
[2023-08-12] MEDS ORDERED: ONDANSETRON 4 MG/2 ML VIAL IVP PRN (05:30)
[2023-08-12] MEDS ORDERED: ZOLPIDEM 5 MG TAB PO PRN (05:30)
[2023-08-12] MEDS ORDERED: ACETAMINOPHEN 325 MG TAB PO PRN (05:30)
[2023-08-12] MEDS ORDERED: KCL 20 MEQ IN 100 mL PREMIX 200 ML IV PRN (05:30)
[2023-08-12] MEDS ORDERED: MAG SULF 2000 MG/WATER PREMIX 50 ML IV PRN (05:30)
[2023-08-12] MEDS ORDERED: MIDODRINE 5 MG TAB PO PRN (05:35)
[2023-08-12] MEDS: hePARIN / DEXT 5% PREMIX 250 ML IV SCH (06:18)
[2023-08-12] MEDS: DOCUSATE SODIUM 100 MG GELCAP PO SCH (09:00)
[2023-08-12] MEDS: HEPARIN PER PHARMACY MC SCH (09:00)
[2023-08-12] MEDS ORDERED: LORazepam 1 MG TAB PO PRN (10:15)
[2023-08-12] MEDS ORDERED: HYDROcodone/APAP 5/325 MG 1 TAB TAB PO SCH (10:15)
[2023-08-12 10:35] VITALS: RESP 16; O2SAT 99
[2023-08-12] MEDS ORDERED: APIX5TAB PO (11:56)
[2023-08-12] MEDS ORDERED: ASPI-1822 PO (11:56)
[2023-08-12 12:00] VITALS: BP 135/50; PULSE 56; RESP 18; TEMP 98.3; O2SAT 99
[2023-08-12] MEDS ORDERED: ISOSORBIDE DINITRATE 10 MG TAB ONE (13:44)
[2023-08-12] MEDS ORDERED: LIDOCAINE 5% 1 EA PATCH TP ONE (13:44)
[2023-08-12] MEDS ORDERED: PHENYTOIN 100 MG CAPER PO ONE (13:44)
[2023-08-12] MEDS: ISOSORBIDE DINITRATE 10 MG TAB PO SCH (13:46)
[2023-08-12] MEDS: PHENYTOIN 100 MG CAPER PO SCH (13:46)
[2023-08-12] MEDS: LIDOCAINE 5% 1 EA PATCH TP SCH (13:47)
[2023-08-12 14:15] VITALS: BP 131/60; PULSE 72; RESP 18; TEMP 98.1
[2023-08-12] MEDS ORDERED: APIXABAN 2.5 MG TAB ONE ×2 (16:46→16:47)
[2023-08-12] MEDS: APIXABAN 2.5 MG TAB PO SCH (16:58)
[2023-08-12] MEDS ORDERED: ISOSORBIDE DINITRATE 5 MG PO SCH (21:00)
[2023-08-12] MEDS ORDERED: METOCLOPRAMIDE 10 MG TAB PO SCH (21:00)
[2023-08-12] MEDS ORDERED: ATORVASTATIN 80 MG TAB PO SCH (21:00)
[2023-08-13] MEDS ORDERED: CLOPIDOGREL 75 MG TAB PO SCH (09:00)
[2023-08-13] MEDS ORDERED: amLODIPine 5 MG TAB PO SCH (09:00)
[2023-08-13] MEDS ORDERED: PANTOPRAZOLE 40 MG TABEC PO SCH (09:00)
[2023-08-13] MEDS ORDERED: NON-FORMULARY ITEM (Omeprazole* (Prilosec*) 20 MG) PO SCH (09:00)
[2023-08-13] MEDS ORDERED: ENALAPRIL 10 MG TAB PO SCH (09:00)
== END 2023-08-12 17:05 | disposition home or self-care (01) ==
LOC: MED 00:40 → MTU 05:30
PROVIDERS: ADMIT Internal Medicine; ATTEND Internal Medicine
DX: I82.622 Acute embolism and thrombosis of deep veins of left upper extremity (principal); I10 Essential (primary) hypertension; G40.909 Epilepsy, unspecified, not intractable, without status epilepticus; K21.9 Gastro-esophageal reflux disease without esophagitis; E66.01 Morbid (severe) obesity due to excess calories; I95.9 Hypotension, unspecified; R42 Dizziness and giddiness; I25.2 Old myocardial infarction; I25.10 Atherosclerotic heart disease of native coronary artery without angina pectoris; Z86.2 Personal history of diseases of the blood and blood-forming organs and certain disorders involving the immune mechanism; Z88.0 Allergy status to penicillin; Z68.38 Body mass index [BMI] 38.0-38.9, adult; Z79.899 Other long term (current) drug therapy
CPT/HCPCS: 36415; 70450; 71045; 80048; 80076; 81003; 83605; 83880; 84484; 85025; 85379; 85610; 85730; 87040; 87081; 87086; 93005; 93971; 96365; 96366; 96367; 96376; 99285; G0378; J1644; J1956; Q0092; 96361